=== PATIENT | female | born 2000 | race Caucasian/White ===

== ENCOUNTER 2022-11-14 11:04 | Emergency (ER) | payer MEDICAID ==
[~2022-11-14] VITALS: Ht 157.5 cm; Wt 73.0 kg
[2022-11-14 11:14] VITALS: BP 120/70
[2022-11-14] MEDS ORDERED: BENZ1LOZ73 MT (12:02)
[2022-11-14] MEDS ORDERED: ACET-2708 MT (12:03)
== END 2022-11-14 12:13 | disposition home or self-care (01) ==
LOC: ER 11:04
DX: J02.9 Acute pharyngitis, unspecified (principal)
CPT/HCPCS: 81025; 99282

== ENCOUNTER 2022-12-07 05:22 | Emergency (ER) | payer MEDICAID ==
[~2022-12-07] VITALS: Ht 157.5 cm; Wt 723.0 kg
[~2022-12-07 05:22] MED LIST: ACET-2708 MT; BENZ1LOZ73 MT
[2022-12-07 05:30] VITALS: BP 133/78
[2022-12-07 05:51] LABS: CLARITY URINE CLEAR (CLEAR); COLOR URINE YELLOW (YELLOW); KETONES URINE TRACE (NEGATIVE); LEUKOCYTE ESTERASE URINE NEGATIVE (NEGATIVE); NITRITE URINE NEGATIVE (NEGATIVE); OCCULT BLOOD URINE NEGATIVE (NEGATIVE); PH URINE 5.5 (4.5-8.0); PROTEIN URINE NEGATIVE (NEGATIVE); SPECIFIC GRAVITY URINE 1.027 (1.005-1.030)
[2022-12-07] MEDS ORDERED: DOXYCYCLINE HYCLATE 100MG CAPSULE PO ONE (06:00)
[2022-12-07] MEDS ORDERED: CEFTRIAXONE SODIUM 1 G/VIAL IM ONE (06:00)
[2022-12-07] MEDS ORDERED: DOXY100T2 PO (06:05)
[2022-12-09 05:11] LABS: NEISSERIA GONORRHOEAE NAA Negative (Negative)
== END 2022-12-07 06:34 | disposition home or self-care (01) ==
LOC: ER 05:22
DX: A64 Unspecified sexually transmitted disease (principal)
CPT/HCPCS: 81003; 81025; 87491; 87591; 96372; 99284; J0696; Z7610

== ENCOUNTER 2023-01-03 20:43 | Emergency (ER) | payer SELFPAY ==
[~2023-01-03] VITALS: Ht 157.5 cm; Wt 73.0 kg
[~2023-01-03 20:43] MED LIST changes: +DOXY100T2 PO
[2023-01-03 21:28] VITALS: BP 116/70
[2023-01-03] MEDS ORDERED: ACETAMINOPHEN 325MG TABLET PO PRN (23:00)
[2023-01-03 23:34] LABS: CHLORIDE 107 mEq/L (98-107)
[2023-01-03 23:37] LABS: BASOPHILS % 0.8 % (0.0-2.0); EOSINOPHILS % 4.2 % (0.0-5.0); HEMATOCRIT. 39.6 % (36.0-48.0); HEMOGLOBIN. 13.4 g/dL (12.0-16.0); LYMPHOCYTES % 37.8 % (20.0-50.0); MEAN CORPUSCULAR HEMOGLOBIN 30.4 pg (28.0-32.0); MEAN CORPUSCULAR VOLUME 89.7 fL (81.0-99.0); MEAN PLATELET VOLUME 8.3 fl (7.4-10.4); MONOCYTES % 9.7 % (2.0-8.0); NEUTROPHILS % 47.5 % (40.0-76.0); PLATELET 357 x1000/uL (130-400); RED BLOOD CELL COUNT 4.41 mill/uL (4.2-5.4); RED CELL DISTRIBUTION WIDTH 13.7 % (11.6-14.6)
[2023-01-03 23:45] LABS: B-HCG QUANTITATIVE < 1 mIU/mL (<3)
[2023-01-03 23:57] LABS: HCG SCREEN NEGATIVE
== END 2023-01-04 01:25 | disposition home or self-care (01) ==
LOC: ER 20:43
DX: N83.202 Unspecified ovarian cyst, left side (principal)
CPT/HCPCS: 36415; 76830; 76856; 80053; 84702; 84703; 85025; 86850; 86900; 99284